=== PATIENT | male | born 1980 | race Caucasian/White ===

== ENCOUNTER 2019-11-09 21:22 | Emergency (ER) | payer BC ==
--- NOTE | 2019-11-09 21:29 | EDM.PDOC ---
ED HPI GENERAL MEDICAL PROBLEM - General Chief Complaint: Back Pain or Injury Stated Complaint: BACK PAIN Time Seen by Provider: 11/09/19 21:28 Source of Information: Reports: Patient History Limitations: Reports: No Limitations - History of Present Illness INITIAL COMMENTS - FREE TEXT/NARRATIVE: HISTORY AND PHYSICAL: History of present illness: Patient is a 38-year-old male who presents to the emergency room with complaints of lumbar back pain x24 hours. He states yesterday he noticed some mild back pain which seemed to progressively get worse throughout his workday. He was able to get into the primary care office today and did have an x-ray ( negative). He was given a prescription for a lidocaine topical patch which he feels is not alleviating his discomfort. The pain is localized to the lumbar back region which she states goes across into the musculature, does not radiate. He has had a history of intermittent back pain in the past which has required chiropractic and prescription medication use. He denies any injury, trauma or falls. Patient denies any fever, chills, headache, change in vision, syncope or near syncope. Denies any chest pain, shortness of breath or cough. Denies any abdominal pain, nausea, vomiting, diarrhea, constipation or dysuria. No groin pain, testicular pain/redness or swelling. He has not noted any blood in urine or stool. Denies any numbness, weakness, paresthesia, urinary or fecal incontinence. Patient has been eating and drinking appropriately. Review of systems: As per history of present illness and below otherwise all systems reviewed and negative. Past medical history: As per history of present illness and as reviewed below otherwise noncontributory. Surgical history: As per history of present illness and as reviewed below otherwise noncontributory. Social history: See social history for further information Family history: As per history of present illness and as reviewed below otherwise noncontributory. Physical exam: General: Well-developed and well-nourished 38-year-old male. Alert and oriented. Nontoxic-appearing and moderately uncomfortable due to back pain. HEENT: Atraumatic, normocephalic, pupils equal and reactive bilaterally, negative for conjunctival pallor or scleral icterus, mucous membranes moist, trachea midline. No drooling or trismus noted. No meningeal signs. No hot potato voice noted. Lungs: Clear to auscultation, breath sounds equal bilaterally, chest nontender. Heart: S1S2, regular rate and rhythm without overt murmur Abdomen: Soft, obese, nontender. Negative for masses. Negative for costovertebral tenderness. Pelvis: Stable nontender. Genitourinary/Rectal: Deferred. Skin: Intact, warm, dry. No lesions or rashes noted. C-spine/Back: No pinpoint vertebral tenderness upon palpation. No crepitus, step -offs or obvious deformities. Bilateral paraspinous muscular tenderness in the lumbar region. Large body habitus; pain with use of lumbar back muscles ( flexion/extension and twisting motion). Patient is ambulatory, slow but steady into the emergency room. Able to rock back on heels and walk on toes. Denies any urinary or fecal incontinence. Denies any numbness, tingling or saddle paresthesia. Extremities: Atraumatic, moves all extremities per self without difficulty or deficits, negative for cords or calf pain. Negative for foot drop. Poor leg raise test without causing lumbar back discomfort. Neurovascular unremarkable. Neuro: Awake, alert, oriented. Cranial nerves II through XII unremarkable. Cerebellum unremarkable. Motor and sensory unremarkable throughout. Exam nonfocal. Notes: Patient did just have an lumbar x-ray done today at [place] - I do not have access to this, after discussing imagining with patient we will not redo any x- rays at this time. He has a ride home; will give IM medication while here. Pain has improved significantly. He does have established care with a primary care provider at [place], he plans of following up with them if pain continues or new symptoms develop. We also reviewed signs and symptoms that would prompt him to return to the emergency room. Supportive care measures were reviewed and discussed. Voices understanding and is agreeable to plan of care. Denies any further questions or concerns at this time. Diagnostics: Declines Therapeutics: Dilaudid IM Prescription: Tramadol, Flexeril Impression: Lumbago Plan: 1. The medication you received today does cause drowsiness, so do not drive for the remaining day 2. When resting please lay on a flat firm surface. Limit your immobility to prevent muscle stiffness. Get up to ambulate/move around/gentle stretching multiple times throughout the day. May alternate heat and ice to the painful areas 3. Tylenol and Ibuprofen as needed for back pain. Otherwise take the prescribed Flexeril and tramadol as directed. Do NOT take the Tramadol and Flexeril at the same time as both of these medications may cause drowsiness a do not take it will driving her needing to be functioning outside of the house. 4. Please follow-up with your primary care provider as we discussed. Return to the ED as needed and as discussed. Definitive disposition and diagnosis as appropriate pending reevaluation and review of above. Duration: Day(s): Location: Reports: Back - Related Data Allergies Allergy/AdvReac Type Severity Reaction Status Date / Time No Known Allergies Allergy Verified 11/09/19 21:46 Home Meds: Home Meds Blood Pressure Med 11/09/19 [History] ED ROS GENERAL - Review of Systems Review Of Systems: Comprehensive ROS is negative, except as noted in HPI. ED EXAM,LOWER BACK PAIN/INJURY - Physical Exam Exam: See Below (See dictation) Course - Vital Signs Last Recorded V/S: Last Vital Signs Temp 96.1 F L 11/09/19 21:44 Pulse 90 11/09/19 21:44 Resp 20 11/09/19 21:44 BP 147/81 H 11/09/19 21:44 Pulse Ox 99 11/09/19 21:44 - Orders/Labs/Meds Meds: Medications Discontinued Medications Generic Name Dose Route Start Last Admin Trade Name Rio PRN Reason Stop Dose Admin Hydromorphone HCl 1 mg 11/09/19 21:35 Dilaudid IM 11/09/19 21:36 ONETIME ONE Departure - Departure Time of Disposition: 21:50 Disposition: Home, Self-Care 01 Clinical Impression: Lumbago Qualifiers: Chronicity: acute Back pain laterality: bilateral Sciatica presence: without sciatica Qualified Code(s): M54.5 - Low back pain - Discharge Information Instructions: Acute Back Pain, Adult Referrals: Sánchez Martinez MD [Primary Care Provider] - Forms: ED Department Discharge Additional Instructions: The following information is given to patients seen in the emergency department who are being discharged to home. This information is to outline your options for follow-up care. We provide all patients seen in our emergency department with a follow-up referral. The need for follow-up, as well as the timing and circumstances, are variable depending upon the specifics of your emergency department visit. If you don't have a primary care physician on staff, we will provide you with a referral. We always advise you to contact your personal physician following an emergency department visit to inform them of the circumstance of the visit and for follow-up with them and/or the need for any referrals to a consulting specialist. The emergency department will also refer you to a specialist when appropriate. This referral assures that you have the opportunity for follow-up care with a specialist. All of these measure are taken in an effort to provide you with optimal care, which includes your follow-up. Under all circumstances we always encourage you to contact your private physician who remains a resource for coordinating your care. When calling for follow-up care, please make the office aware that this follow-up is from your recent emergency room visit. If for any reason you are refused follow-up, please contact the [facility] Emergency Department at and asked to speak to the emergency department charge nurse. [facility] [address] [place] [id number] [facility] [address] [place] [phone] 1. The medication you received today does cause drowsiness, so do not drive for the remaining day 2. When resting please lay on a flat firm surface. Limit your immobility to prevent muscle stiffness. Get up to ambulate/move around/gentle stretching multiple times throughout the day. May alternate heat and ice to the painful areas 3. Tylenol and Ibuprofen (please take routinely with food over the next 1-3 days ) as needed for back pain. Otherwise take the prescribed Flexeril and tramadol as directed. Do NOT take the Tramadol and Flexeril at the same time as both of these medications may cause drowsiness a do not take it will driving her needing to be functioning outside of the house. 4. Please follow-up with your primary care provider as we discussed. Return to the ED as needed and as discussed. Sepsis Event Note - Focused Exam Vital Signs: Vital Signs Temp Pulse Resp BP Pulse Ox 05/15/20 21:44 96.1 F L 90 20 147/81 H 99 Date Exam was Performed: 11/09/19 Time Exam was Performed: 21:47
[2019-11-09] MEDS ORDERED: HYDROmorphone 1 MG/ML Syringe IM ONE (21:35)
== END 2019-11-09 22:30 | disposition home or self-care (01) ==
LOC: MW.ED 21:22
DX: M54.5 Low back pain (principal)
CPT/HCPCS: 96372; 99283; J1170; 99282